=== PATIENT | female | born 1955 | race Caucasian/White ===

== ENCOUNTER 2018-10-02 13:21 | Inpatient (IN) ==
[2018-10-02 15:42] LABS: Baso % (Auto) 0.4 % (0.0-2.0); Eos # (Auto) 0.1 th/mm3 (0.0-0.4); Eos % (Auto) 0.9 % (0.0-4.0); Hemoglobin 10.3 gm/dL (11.6-15.3); Lymph # (Auto) 1.8 th/mm3 (1.0-4.8); Lymph % (Auto) 22.1 % (9.0-44.0); Mean Corpuscular HGB Conc 34.3 % (32.0-36.0); Mean Corpuscular Hemoglobin 32.9 pg (27.0-34.0); Mean Corpuscular Volume 95.8 fL (80.0-100.0); Mean Platelet Volume 7.2 fL (7.0-11.0); Mono # (Auto) 0.9 th/mm3 (0.0-0.9); Mono % (Auto) 10.4 % (0.0-8.0); Neut # (Auto) 5.5 th/mm3 (1.8-7.7); Neut % (Auto) 66.2 % (16.0-70.0); Platelet Count 242 th/mm3 (150-450); Red Blood Count 3.14 mil/mm3 (4.00-5.30); Red Cell Distribution Width 14.7 % (11.6-17.2); White Blood Count 8.3 th/mm3 (4.0-11.0)
--- NOTE | 2018-10-02 15:50 | ED ---
HPI General Chief Complaint: Psychiatric Symptoms Stated Complaint: Psy Eval/Evac/BDPD Time Seen by Provider: 10/02/18 14:58 Source: patient Mode of arrival: other Limitations: no limitations History of Present Illness HPI Narrative: The patient is a 62-year-old female who presents to the emergency department as a Briggs act. The patient states that she has a history of bipolar affective disorder and schizoaffective disorder, recently moved to [place] 2 days ago from [place], [place]. The patient states that her son from bone cancer 1 year ago, he was in his 30s at the time of . The patient moved to the local area 2 days ago but states that her money and belongings [place] at the bus station. The patient states she had been living on the streets for the last several days, and has had increasing thoughts of suicide. The patient cut her left wrist approximately 1 hour prior to arrival with a knife. The patient has tried to commit suicide in the past by cutting herself. She does note suicidal ideation and increasing depression secondary to the of her son and her current social situation. She also notes hearing voices that are telling her to harm herself, she does not recognize the voices. The patient denies any illicit drug use, alcohol use , homicidal ideation, or visual hallucinations. The patient denies any delusions. Symptoms are moderate and progressive. The patient states her last tetanus shot was 2 years ago, she is right-hand dominant. MD complaint: Reports suicidal ideation and feels depressed Onset (ago): day(s) Duration: intermittent History of same: Yes Relieving factors: none Context: Reports other Associated psychiatric symptoms: Reports depression and suicidal ideation Associated symptoms: Reports denies other symptoms Treatments prior to arrival: Reports placed on mental health hold If self harm: admits thoughts of self harm, has plan, has acted on plan and self -inflicted trauma Related Data Home Medications Medication Instructions Recorded Confirmed divalproex [Depakote] 500 mg PO BID 10/02/18 10/02/18 levothyroxine 50 mcg PO DAILY 10/02/18 10/02/18 Allergies Allergy/AdvReac Type Severity Reaction Status Date / Time lithium Allergy Confusion Verified 10/02/18 15:36 Review of Systems ROS: all other systems reviewed are negative [facility] Social History Social History Substance History: No History of Abuse Second Hand Smoke Exposure: Yes Smoking Status: Current every day smoker Tobacco Type: Cigarettes How Often Do You Have a Drink Containing Alcohol: Never Recent Travel in [facility] within the Last 8 Weeks: No Recent Out of Country Travel within the Last 8 Weeks: No Immunization History Tetanus Immunization: Unsure Tetanus Immunization Year if Known: 2017 Exam Narrative Exam Narrative: GENERAL: Awake, alert, 62-year-old female who appears older than her stated age but is in no acute respiratory distress. SKIN: Focused skin assessment warm/dry. 2.5 cm transverse laceration to the radial aspect of the left wrist, there is no visible tendon involvement. No active bleeding. HEAD: Atraumatic. Normocephalic. EYES: Pupils equal and round. 3 mm bilateral and reactive. ENT: No nasal bleeding or discharge. Upper dentures in place, no lower teeth. NECK: Trachea midline. No JVD. CARDIOVASCULAR: Regular rate and rhythm. No murmur appreciated. RESPIRATORY: No accessory muscle use. Clear to auscultation. Breath sounds equal bilaterally. GASTROINTESTINAL: Abdomen soft, non-tender, nondistended. MUSCULOSKELETAL: No obvious deformities. No clubbing. No cyanosis. No edema. NEUROLOGICAL: Awake and alert. No obvious cranial nerve deficits. Motor grossly within normal limits. Normal speech. Nonfocal. Oriented to person, place, month, and year. PSYCHIATRIC: Flat affect. Procedures Laceration Laceration 1: Site: upper extremity Side (If applicable): left Size (cm): 2 Description: linear Depth: simple, single layer Anesthetic used: lidocaine 1% Amount (mL): 2 Pre-repair:: wound explored and irrigated extensively Skin layer closed with: ethilon Size (cm): 4-0 Number of sutures:: 5 Course Initial Documented Vital Signs Temperature 98.5 F 10/02/18 13:50 Pulse Rate 78 10/02/18 13:50 Respiratory Rate 20 10/02/18 13:50 Blood Pressure 145/83 H 10/02/18 13:50 Pulse Oximetry 98 10/02/18 13:50 Last Documented Vital Signs Temperature 97.6 F 10/04/18 06:00 Pulse Rate 90 10/04/18 06:00 Respiratory Rate 17 10/04/18 06:00 Blood Pressure 151/74 H 10/04/18 06:00 Pulse Oximetry 96 10/04/18 06:00 Medical Decision Making MDM Narrative Medical decision making narrative: IV was established, labs are drawn and sent, and the patient was placed on cardiac telemetry monitoring and continuous pulse oximetry monitoring. Valproic acid level was sent to lab. The patient's laceration was repaired by the mid-level provider, please refer to the procedure note. Psychiatric evaluation was ordered. Medical Screen Exam Complete: Yes Emergency Medical Condition: Yes Differential Diagnosis Differential Diagnosis: Differential diagnosis includes bipolar affective disorder, depressive disorder, schizoaffective disorder, malingering, adjustment reaction, stress reaction, subtherapeutic Depakote level, laceration , abrasion. Lab Data Result diagrams: 10/02/18 15:00 10/03/18 08:02 Lab Results 10/02/18 10/02/18 10/02/18 Range/Units 15:00 15:00 15:00 WBC 8.3 (4.0-11.0) th/mm3 RBC 3.14 L (4.00-5.30) mil/mm3 Hgb 10.3 L (11.6-15.3) gm/dL Hct 30.0 L (35.0-46.0) % MCV 95.8 (80.0-100.0) fL MCH 32.9 (27.0-34.0) pg MCHC 34.3 (32.0-36.0) % RDW 14.7 (11.6-17.2) % Plt Count 242 (150-450) th/mm3 MPV 7.2 (7.0-11.0) fL Neut % (Auto) 66.2 (16.0-70.0) % Lymph % (Auto) 22.1 (9.0-44.0) % [place] % (Auto) 10.4 H (0.0-8.0) % Eos % (Auto) 0.9 (0.0-4.0) % Baso % (Auto) 0.4 (0.0-2.0) % Neut # (Auto) 5.5 (1.8-7.7) th/mm3 Lymph # (Auto) 1.8 (1.0-4.8) th/mm3 [place] # (Auto) 0.9 (0.0-0.9) th/mm3 Eos # (Auto) 0.1 (0.0-0.4) th/mm3 Baso # (Auto) 0.0 (0.0-0.2) th/mm3 WBC Differential . Differential Comment Auto diff final Sodium 142 (136-145) meq/L Potassium 4.2 (3.5-5.1) meq/L Chloride 111 H (98-107) meq/L Carbon Dioxide 24.8 (21.0-32.0) meq/L Anion Gap 6 (5-15) meq/L BUN 20 H (7-18) mg/dL Creatinine 1.17 H (0.50-1.00) mg/dL Estimated GFR 47 L (>89) mL/min Random Glucose 80 (74-106) mg/dL Hemoglobin A1c (4.3-6.0) % Calcium 8.3 L (8.5-10.1) mg/dL Magnesium 2.3 (1.5-2.5) mg/dL Total Bilirubin 0.2 (0.2-1.0) mg/dL AST 10 L (15-37) U/L ALT 11 (10-53) U/L Alkaline Phosphatase 85 (45-117) U/L Total Protein 6.3 L (6.4-8.2) g/dL Albumin 3.3 L (3.4-5.0) g/dL Triglycerides (42-150) mg/dL Cholesterol (120-200) mg/dL LDL Cholesterol, Calc (0-99) mg/dL HDL Cholesterol (40.0-60.0) mg/dL Cholesterol/HDL Ratio Ratio TSH 0.949 (0.358-3.740) uIU/mL Urine Opiates Screen (Neg) Ur Barbiturates Screen (Neg) Valproic Acid 5 L Cancelled (50-100) mcg/mL Ur Amphetamines Screen (Neg) U Benzodiazepines Scrn (Neg) Urine Cocaine Screen (Neg) U Cannabinoids Screen (Neg) Serum Alcohol Less than 3 (0-5) mg/dL 10/02/18 10/03/18 10/03/18 Range/Units 15:15 08:02 08:02 WBC (4.0-11.0) th/mm3 RBC (4.00-5.30) mil/mm3 Hgb (11.6-15.3) gm/dL Hct (35.0-46.0) % MCV (80.0-100.0) fL MCH (27.0-34.0) pg MCHC (32.0-36.0) % RDW (11.6-17.2) % Plt Count (150-450) th/mm3 MPV (7.0-11.0) fL Neut % (Auto) (16.0-70.0) % Lymph % (Auto) (9.0-44.0) % [place] % (Auto) (0.0-8.0) % Eos % (Auto) (0.0-4.0) % Baso % (Auto) (0.0-2.0) % Neut # (Auto) (1.8-7.7) th/mm3 Lymph # (Auto) (1.0-4.8) th/mm3 [place] # (Auto) (0.0-0.9) th/mm3 Eos # (Auto) (0.0-0.4) th/mm3 Baso # (Auto) (0.0-0.2) th/mm3 WBC Differential Differential Comment Sodium 140 (136-145) meq/L Potassium 4.4 (3.5-5.1) meq/L Chloride 110 H (98-107) meq/L Carbon Dioxide 22.7 (21.0-32.0) meq/L Anion Gap 7 (5-15) meq/L BUN 19 H (7-18) mg/dL Creatinine 0.99 (0.50-1.00) mg/dL Estimated GFR 57 L (>89) mL/min Random Glucose 121 H (74-106) mg/dL Hemoglobin A1c 4.7 (4.3-6.0) % Calcium 8.6 (8.5-10.1) mg/dL Magnesium (1.5-2.5) mg/dL Total Bilirubin (0.2-1.0) mg/dL AST (15-37) U/L ALT (10-53) U/L Alkaline Phosphatase (45-117) U/L Total Protein (6.4-8.2) g/dL Albumin (3.4-5.0) g/dL Triglycerides 102 (42-150) mg/dL Cholesterol 170 (120-200) mg/dL LDL Cholesterol, Calc 83 (0-99) mg/dL HDL Cholesterol 66.5 H (40.0-60.0) mg/dL Cholesterol/HDL Ratio 2.55 Ratio TSH (0.358-3.740) uIU/mL Urine Opiates Screen Neg (Neg) Ur Barbiturates Screen Neg (Neg) Valproic Acid (50-100) mcg/mL Ur Amphetamines Screen Neg (Neg) U Benzodiazepines Scrn Neg (Neg) Urine Cocaine Screen Neg (Neg) U Cannabinoids Screen Neg (Neg) Serum Alcohol (0-5) mg/dL Discharge Plan Discharge Disposition Patient Disposition: Sign Out(ED Internal Use Only) Discharge Condition Condition: Stable Discharge Order Discharge Orders: ED Use Only Admit Order (Routine); Ordered 10/02/18 Ordered By: Patrice Castrejon Discharge Details Diagnosis: Suicidal ideation, Suicidal behavior Physicians Team ED Provider: Jf Stephenson ED Midlevel Provider: Rebecca Yuen Primary Care Provider: Primary Care Lala Grajeda Attending Provider: Patrice Castrejon Status ED Status: Left Department Discharge Information Discharge Date/Time: 10/02/18 21:30
[2018-10-02 15:53] LABS: Amphetamine Screen,Urine Neg (Neg); Barbiturate Screen,Urine Neg (Neg); Cannabinoid Screen,Urine Neg (Neg); Cocaine Screen,Urine Neg (Neg)
[2018-10-02 15:54] LABS: Opiate Screen,Urine Neg (Neg)
[2018-10-02 16:12] LABS: Alanine Aminotransferase 11 U/L (10-53); Albumin 3.3 g/dL (3.4-5.0); Anion Gap 6 meq/L (5-15); Aspartate Aminotransferase 10 U/L (15-37); Blood Urea Nitrogen 20 mg/dL (7-18); Calcium 8.3 mg/dL (8.5-10.1); Carbon Dioxide 24.8 meq/L (21.0-32.0); Chloride 111 meq/L (98-107); Glomerular Filtration Rate 47 mL/min (>89); Glucose,Random 80 mg/dL (74-106); Magnesium 2.3 mg/dL (1.5-2.5); Potassium 4.2 meq/L (3.5-5.1); Sodium 142 meq/L (136-145)
[2018-10-02 16:17] LABS: Alkaline Phosphatase 85 U/L (45-117); Total Protein 6.3 g/dL (6.4-8.2); Valproic Acid 5 mcg/mL (50-100)
[2018-10-02 16:22] LABS: Thyroid Stimulating Hormone 0.949 uIU/mL (0.358-3.740)
[2018-10-02] MEDS ORDERED: Acetaminophen 325 MG Tablet PO ONE (17:03)
[2018-10-02] MEDS ORDERED: LORazepam 1 MG Tablet PO PRN (21:35)
[2018-10-02] MEDS ORDERED: Aluminum/Magnesium/Simethacone Susp 30 ML UDC PO PRN (21:35)
[2018-10-02] MEDS: Acetaminophen 325 MG Tablet PO PRN (22:29)
[2018-10-02] MEDS ORDERED: LORazepam 1 MG Tablet PO ONE (22:30)
[2018-10-03] MEDS ORDERED: Levothyroxine 50 MCG Tablet PO SCH (06:00)
[2018-10-03 08:49] LABS: Calcium 8.6 mg/dL (8.5-10.1); Carbon Dioxide 22.7 meq/L (21.0-32.0); Potassium 4.4 meq/L (3.5-5.1)
[2018-10-03 08:52] LABS: Chol/HDL Ratio 2.55 Ratio; HDL Cholesterol 66.5 mg/dL (40.0-60.0)
[2018-10-03] MEDS: Acetaminophen 325 MG Tablet PO PRN (10:53)
[2018-10-03 13:02] LABS: Hemoglobin A1c 4.7 % (4.3-6.0)
[2018-10-03] MEDS ORDERED: Aluminum/Magnesium/Simethacone Susp 30 ML UDC PO PRN (16:06)
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
[2018-10-03] MEDS: QUEtiapine 25 MG Tablet PO SCH ×2 (17:03→21:08)
[2018-10-03] MEDS: Mirtazapine 15 MG Tablet PO SCH (21:07)
[2018-10-03] MEDS: Divalproex 500 MG DR Tablet PO SCH (21:07)
[2018-10-04] MEDS: Levothyroxine 50 MCG Tablet PO SCH (06:17)
[2018-10-04] MEDS: QUEtiapine 25 MG Tablet PO SCH ×4 (08:08→20:48)
[2018-10-04] MEDS: Divalproex 500 MG DR Tablet PO SCH ×2 (08:08→20:48)
--- NOTE | 2018-10-04 14:43 | P.PNPSY ---
Subjective Remarks: Reviewed electronic medical records and discussed case with staff. Follow-up was conducted in the patient's room with KETTY Hyatt present. Patient was found standing in the doorway attempting to cut her wrist with a piece of a plastic lid. She also had a stick in her hand which she must of brought in from the outside during fresh air. Patient was crying and kept repeating, "I just want to I cannot live like this anymore". I have ordered a one-to-one sitter for the patient to monitor her behaviors. I consulted with Dr. Carson and have increased her daytime Seroquel dose to 50 mg 3 times a day. Mental Status Examination Appearance: Disheveled (Appears somewhat older than stated age) Consciousness: Alert Orientation: x4 Motor Activity: Other (Somewhat tremulous) Speech: Rapid (Somewhat tremulous) Language: Adequate Fund of Knowledge: Adequate Attention and Concentration: Adequate Memory: Unremarkable Mood: Sad, Anxious Affect: Other (Decreased range and intensity) Thought Process & Associations: Intact Thought Content: Appropriate Hallucination Type: None Delusion Type: None Suicidal Ideation: Yes (Patient states will not take the suicide pill at this time) Suicidal Plan: Yes (Recently cut left wrist) Suicidal Intention: Yes (Vague) Homicidal Ideation: No Homicidal Plan: No Homicidal Intention: No Insight: Poor Judgment: Poor Assessment and Plan - Assessment (1) Adjustment disorder with disturbance of conduct Code(s): F43.24 - Adjustment disorder with disturbance of conduct Status: Acute - Plan Plan: Patient will be reevaluated by the attending psychiatrist. Continue with current treatment plan. Justification for Continued Inpatient Stay: Moving this patient to a less restrictive environment would likely result in decompensation. Request Healthcare Surrogate/Guardian Advocate?: No
--- NOTE | 2018-10-04 15:01 | ECG ---
Date Performed: 10/03/2018 Time Performed: 13:54:36 PTAGE: 62 years EKG: Sinus rhythm NORMAL ECG NO PREVIOUS TRACING DOCTOR: Rudy Thompson Interpretating Date/Time 10/04/2018 14:58:20
[2018-10-04] MEDS: Acetaminophen 325 MG Tablet PO PRN (20:47)
[2018-10-04] MEDS: Mirtazapine 15 MG Tablet PO SCH (20:48)
[2018-10-05] MEDS: Levothyroxine 50 MCG Tablet PO SCH (05:52)
[2018-10-05] MEDS: Divalproex 500 MG DR Tablet PO SCH ×2 (08:25→20:25)
[2018-10-05] MEDS: Acetaminophen 325 MG Tablet PO PRN ×3 (08:45→20:26)
[2018-10-05] MEDS: QUEtiapine 25 MG Tablet PO SCH ×4 (08:48→20:26)
--- NOTE | 2018-10-05 13:05 | P.PNPSY ---
Subjective Remarks: Patient seen in her room with floor staff Heber who is on a one-to-one observation assignment. Chart reviewed. Patient compliant medication. Patient is seen today laying on her bed she is alert oriented calm cooperative is that she had a "bad day yesterday." He states she is feeling better today she feels adjustment of the medications has helped. Patient states she continues with her suicidal ideation with intent, and her depression. However today she is able contract to do no harm she is able contract to keep herself safe. Thus I feel that it is okay for me to discontinue the one-to-one observation and place her back on close observation unit privileges. We will continue medications no change at this time. We also discussed with patient placement issues perhaps a local [facility]. Patient also complains of some pain towards her left side of her face and her ear will have hospitalist check the source Review of Systems Patient complaining of some pain around her left ear and left side of her face will have hospitalist check Mental Status Examination Appearance: Disheveled (Improving) Consciousness: Alert Orientation: x4 Motor Activity: Other (Somewhat tremulous) Speech: Unremarkable, Slow Language: Adequate Fund of Knowledge: Adequate Attention and Concentration: Adequate Memory: Unremarkable Mood: Sad, Anxious Affect: Other (Decreased range and intensity) Thought Process & Associations: Intact Thought Content: Appropriate Hallucination Type: None Delusion Type: None Suicidal Ideation: Yes (Patient able contract to do no) Suicidal Plan: Yes (Patient able contract to do no harm) Suicidal Intention: Yes (Patient able contract to do no harm) Homicidal Ideation: No Homicidal Plan: No Homicidal Intention: No Insight: Poor Judgment: Poor Assessment and Plan - Plan Plan: Patient continues depressed and suicidal though is able contract to do no harm at the present time. She is also able contract to keep self-control and not harm herself while on the unit thus I will cancel the one-to-one observations and return patient to the close observation unit privileges. We will continue medication no change at this time. We will have hospitalist consult related patient is complaining of pain in the left side of her face and left ear area Justification for Continued Inpatient Stay: At this time patient with decompensated placed on a lower level of care Discharge Planning: To be determined we need to work with the placement issues with this homeless lady Request Healthcare Surrogate/Guardian Advocate?: No
--- NOTE | 2018-10-05 13:20 | P.TTN ---
- Patient Problems Problems: 1. Discharge planning 2. Medication compliance 3. Knowledge deficit 4. Lack of coping skills - Progress Toward Goals Provider Present: Dr. Luis Carson (Patient is being treated for depression with unresolved grief, patient remains for further stabilization.) Psychiatric Counselors Present: Augustus Almazan Jr., [facility] (Counselor will meet with the patient to discuss a safe discharge plan.) Group Spec/RT/OT/GAO Present: AMADO Muñoz (Patient attends select groups.) - Documentation Teaching Recipient: Patient
[2018-10-05] MEDS ORDERED: Clindamycin 600 mg/NS Premix 600 MG/50 ML PIGGYBACK IV.SIG SCH (16:45)
--- NOTE | 2018-10-05 16:56 | P.CONIM ---
History of Present Illness Service: Hospitalist Consult date: 10/05/18 Requesting Physician: Randy Carson Reason for Consult: Fever Primary Care Provider: No Primary Care Physician Chief Complaint: Sore neck and fever History of Present Illness: Patient is a 62-year-old female with a past medical history of hypothyroidism, COPD and bipolar and schizoaffective disorder. Initially presented to the emergency room 10/02/18 severely depressed and with suicidal ideation. She was Briggs acted and placed in the inpatient psychiatric unit. Today the patient developed a low-grade fever of 100.3 and complained of pain and swelling in her neck. Hospitalist service has been consulted for evaluation of the fever and pain. Patient is seen lying on her bed. She tells me that she feels very tired and has had fever and chills. The left side of her neck is very painful under her jaw and along the side. She says it has been bothering her for several days and that the swollen area has gradually gotten bigger. She is able to swallow without difficulty. No problems breathing. No chest congestion, shortness of breath or chest pain. No nausea vomiting or diarrhea. Her appetite is somewhat reduced due to the pain in her neck. She has no bottom teeth and wears dentures. Does complain of recent canker sores which she has on and off. No prior history of neck surgery. She does have hypothyroidism for which she takes levothyroxine daily. Review of Systems Review of Systems: all other systems reviewed are negative [facility] Medical History Medical History Emphysema of lung (Acute) History of hysterectomy (Acute) Hypothyroid (Acute) COPD (chronic obstructive pulmonary disease) (Acute) Surgical History Surgical History History of knee replacement (Acute) Social History Social History Substance History: No History of Abuse Second Hand Smoke Exposure: Yes Smoking Status: Current every day smoker Tobacco Type: Cigarettes How Often Do You Have a Drink Containing Alcohol: Never Recent Travel in [facility] within the Last 8 Weeks: No Recent Out of Country Travel within the Last 8 Weeks: No Immunization History Tetanus Immunization: Unsure Tetanus Immunization Year if Known: 2016 Hx Influenza Vaccine This Season: No Medications and Allergies Allergies Allergy/AdvReac Type Severity Reaction Status Date / Time lithium Allergy Confusion Verified 10/02/18 15:36 Home Medications Medication Instructions Recorded Confirmed Type divalproex [Depakote] 500 mg PO BID 10/02/18 10/02/18 History levothyroxine 50 mcg PO DAILY 10/02/18 10/02/18 History Active Medications: Active Medications Acetaminophen (Tylenol) 650 mg PO Q4H PRN PRN Reason: Pain 1-5 or Temp >101F Last Admin: 10/05/18 13:59 Dose: 650 mg Al Hydrox/Mg Hydrox/Simethicone (Mag-Al Plus Susp Liq) 30 ml PO Q6H PRN PRN Reason: DYSPEPSIA Al Hydroxide/Mg Hydroxide (Milk Of Magnesia Liq) 30 ml PO Q12H PRN PRN Reason: Mild Constipation Diphenhydramine HCl (Benadryl) 50 mg PO HS PRN PRN Reason: INSOMNIA Divalproex Sodium (Depakote Dr) 500 mg PO BID [facility] Last Admin: 10/05/18 08:25 Dose: 500 mg Hydroxyzine HCl (Atarax) 50 mg PO Q6H PRN PRN Reason: ANXIETY Last Admin: 10/05/18 15:14 Dose: 50 mg Levothyroxine Sodium (Synthroid) 50 mcg PO DAILY@0600 [facility] Last Admin: 10/05/18 05:52 Dose: 50 mcg Mirtazapine (Remeron) 15 mg PO [facility] Last Admin: 10/04/18 20:48 Dose: 15 mg Nicotine (Habitrol 21 Mg Patch.24 Hr) 1 patch T-DERMAL DAILY [facility] Last Admin: 10/05/18 08:25 Dose: 1 patch Patch Removal (Remove Old Patch) 1 each T-DERMAL [facility] Last Admin: 10/04/18 21:47 Dose: Not Given Quetiapine Fumarate (Seroquel) 50 mg PO [facility] Last Admin: 10/04/18 20:48 Dose: 50 mg Quetiapine Fumarate (Seroquel) 50 mg PO DAILY@08,,18 [facility] Last Admin: 10/05/18 14:02 Dose: 50 mg Physical Exam Vital signs: Last Vital Signs Temp 100.3 F H 10/05/18 15:14 Pulse 98 H 10/05/18 15:14 Resp 18 10/05/18 15:14 BP 111/61 10/05/18 15:14 Pulse Ox 95 10/05/18 15:14 Intake & Output 10/03/18 10/04/18 10/05/18 10/06/18 06:59 06:59 06:59 06:59 Weight 63.7 kg 65.9 kg Narrative: GENERAL: Well-nourished, well-developed adult female in mild discomfort. SKIN: Warm and dry. HEAD: Atraumatic. Normocephalic. EYES: Pupils equal and round. No scleral icterus. No injection or drainage. ENT: No nasal bleeding or discharge. Mucous membranes pink and moist. No preauricular tenderness. NECK: Trachea midline. No JVD. Left submandibular tenderness. Visible and easily palpated around lump in subglandular space which is exquisitely tender to touch. No surface lesion or erythema. Throat with erythema but no obvious exudates. No obvious dental lesions. CARDIOVASCULAR: Regular rate and rhythm. RESPIRATORY: No accessory muscle use. Clear to auscultation. Breath sounds equal bilaterally. GASTROINTESTINAL: Abdomen soft, non-tender, nondistended. MUSCULOSKELETAL: Extremities without clubbing, cyanosis, or edema. No obvious deformities. NEUROLOGICAL: Awake and alert. No obvious cranial nerve deficits. Motor grossly within normal limits. Normal speech. Results Labs CBC & Chem 7: 10/02/18 15:00 10/03/18 08:02 Assessment and Plan (1) Adjustment disorder with disturbance of conduct: Code(s): F43.24 - Adjustment disorder with disturbance of conduct Status: Acute Plan Patient is a 62-year-old female with a past medical history of hypothyroidism, COPD and bipolar and schizoaffective disorder. Initially presented to the emergency room 10/02/18 severely depressed and with suicidal ideation. She was Briggs acted and placed in the inpatient psychiatric unit. Today the patient developed a low-grade fever of 100.3 and complained of pain and swelling in her neck. Hospitalist service has been consulted for evaluation of the fever and pain. Suicidal ideation, bipolar, schizoaffective -Managed by psychiatry Submandibular swelling, fever -CT ordered to evaluate for abscess -Labs not indicative of sepsis at admit on 10/02; repeat ordered -Start IV clindamycin -Tylenol for pain and fever -Transfer to med psych -Gentle IVF fluid due to swallow pain/difficulty and concern for dehydration DVT prophylaxis: Ambulatory Thank you for this consult. We look forward to assisting you in the medical management of this patient.
[2018-10-05 17:40] LABS: Baso % (Auto) 0.6 % (0.0-2.0); Eos # (Auto) 0.2 th/mm3 (0.0-0.4); Eos % (Auto) 2.9 % (0.0-4.0); Hemoglobin 10.4 gm/dL (11.6-15.3); Lymph # (Auto) 2.5 th/mm3 (1.0-4.8); Lymph % (Auto) 34.9 % (9.0-44.0); Mean Corpuscular HGB Conc 33.4 % (32.0-36.0); Mean Corpuscular Hemoglobin 32.5 pg (27.0-34.0); Mean Corpuscular Volume 97.3 fL (80.0-100.0); Mean Platelet Volume 7.3 fL (7.0-11.0); Mono # (Auto) 0.5 th/mm3 (0.0-0.9); Mono % (Auto) 7.7 % (0.0-8.0); Neut # (Auto) 3.8 th/mm3 (1.8-7.7); Neut % (Auto) 53.9 % (16.0-70.0); Platelet Count 218 th/mm3 (150-450); Red Blood Count 3.18 mil/mm3 (4.00-5.30); Red Cell Distribution Width 14.9 % (11.6-17.2); White Blood Count 7.1 th/mm3 (4.0-11.0)
[2018-10-05 18:08] LABS: Calcium 8.3 mg/dL (8.5-10.1); Carbon Dioxide 22.1 meq/L (21.0-32.0); Potassium 4.4 meq/L (3.5-5.1)
[2018-10-05] MEDS: Sod Chloride 0.9% Inj 1,000 ML IV.CONT SCH (18:46)
--- NOTE | 2018-10-05 20:15 | CT ---
EXAM DATE: 10/05/2018 8:02 PM EST AGE/SEX: 62 years / Female INDICATIONS: Left neck swelling. CLINICAL DATA: This is the patient's initial encounter. Patient reports that signs and symptoms have been present for 1 day and indicates a pain score of 3/10. MEDICAL/SURGICAL HISTORY: Chronic obstructive pulmonary disease. Emphysema. Hysterectomy. RADIATION DOSE: 32.15 CTDI (mGy) COMPARISON: No prior exams available for comparison. TECHNIQUE: Helical acquisition was performed using a multirow detector CT scanner during the adminis tration of 70 ml Omnipaque 350 (iohexol) nonionic water-soluble contrast as a single exam dose. Usi ng automated exposure control and adjustment of the mA and/or kV according to patient size, radiation dose was kept as low as reasonably achievable to obtain optimal diagnostic quality images. DICOM fo rmat image data is available electronically for review and comparison. FINDINGS: There is a 6 mm stone in the floor of the mouth on the left consistent with salivary duct stone. Ther e is mild asymmetric swelling of the ipsilateral submandibular salivary gland. Elsewhere, the visualized brain and orbital structures are unremarkable. The upper airway structures are unremarkable There are small normal sized cervical lymph nodes identified. There is heterogeneous goitrous enlargement of the thyroid with scattered calcifications present. The supraclavicular regions, upper mediastinum and visualized lung apices are clear. The bony elements are benign in appearance. CONCLUSION: Left floor of mouth sialolithiasis. Electronically signed by: Randy Barnes MD Board Certified Radiologist 10/05/2018 8:14 PM EST
[2018-10-05] MEDS: Mirtazapine 15 MG Tablet PO SCH (20:26)
[2018-10-06] MEDS: Levothyroxine 50 MCG Tablet PO SCH (06:22)
[2018-10-06] MEDS: Divalproex 500 MG DR Tablet PO SCH ×2 (08:20→20:21)
[2018-10-06] MEDS: Acetaminophen 325 MG Tablet PO PRN (08:21)
[2018-10-06] MEDS: QUEtiapine 25 MG Tablet PO SCH ×4 (08:21→20:21)
[2018-10-06] MEDS ORDERED: Morphine Inj 4 MG/ML Vial IV.PUSH PRN (08:46)
[2018-10-06] MEDS ORDERED: Naloxone Inj 0.4 MG/ML Vial IV.PUSH PRN (08:46)
--- NOTE | 2018-10-06 08:48 | P.PNIM ---
Subjective Interval history: Patient seen lying in bed. Still appears to be in some distress and is complaining about significant pain In her jaw radiating up into her ear. She is not having any difficulty swallowing or breathing. No fever or chills. No nausea vomiting Or diarrhea. Physical Exam Vital signs: Last Vital Signs Temp 98.0 F 10/06/18 06:14 Pulse 77 10/06/18 06:14 Resp 18 10/06/18 06:14 BP 123/80 10/06/18 06:14 Pulse Ox 95 10/06/18 06:14 Intake & Output 10/04/18 10/05/18 10/06/18 10/07/18 06:59 06:59 06:59 06:59 Intake Total Balance Weight 65.9 kg Narrative: GENERAL: Well-nourished, well-developed adult female in mild discomfort. SKIN: Warm and dry. HEAD: Atraumatic. Normocephalic. EYES: Pupils equal and round. No scleral icterus. No injection or drainage. ENT: No nasal bleeding or discharge. Mucous membranes pink and moist. No preauricular tenderness. NECK: Trachea midline. No JVD. Left submandibular tenderness. Visible and easily palpated around lump in subglandular space which is exquisitely tender to touch. No surface lesion or erythema. Throat with erythema but no obvious exudates. No obvious dental lesions. CARDIOVASCULAR: Regular rate and rhythm. RESPIRATORY: No accessory muscle use. Clear to auscultation. Breath sounds equal bilaterally. GASTROINTESTINAL: Abdomen soft, non-tender, nondistended. MUSCULOSKELETAL: Extremities without clubbing, cyanosis, or edema. No obvious deformities. NEUROLOGICAL: Awake and alert. No obvious cranial nerve deficits. Motor grossly within normal limits. Normal speech. Results Labs CBC & Chem 7: 10/05/18 17:21 10/05/18 17:21 Imaging Imaging: Impressions Soft Tissue Neck CT 10/05/18 00:00 CONCLUSION: Left floor of mouth sialolithiasis. Assessment and Plan (1) Adjustment disorder with disturbance of conduct: Code(s): F43.24 - Adjustment disorder with disturbance of conduct Status: Acute Plan Patient is a 62-year-old female with a past medical history of hypothyroidism, COPD and bipolar and schizoaffective disorder. Initially presented to the emergency room 10/02/18 severely depressed and with suicidal ideation. She was Briggs acted and placed in the inpatient psychiatric unit. Today the patient developed a low-grade fever of 100.3 and complained of pain and swelling in her neck. Hospitalist service has been consulted for evaluation of the fever and pain. Suicidal ideation, bipolar, schizoaffective -Managed by psychiatry Sialolithiasis/Sialoadenitis Submandibular swelling, fever -CT ordered to evaluate - an abscess; 6 mm salivary duct stone. -Consult placed to ENT; appreciate assistance -Labs not indicative of sepsis at admit on 10/02 however HR 90 with RR 20+ and T- max 100.3; repeat ordered -now lactic acid 3.1. -Start IV clindamycin -Gentle IVF fluid due to swallow pain/difficulty and concern for dehydration Acute pain -PRN pain management as indicated. Avoid oversedation. DVT prophylaxis: Ambulatory [employer] Prescription Drug Monitoring Database has been queried and verified prior to prescribing the controlled substance. Acute pain exception: This patient has normal, predicted, physiological, and time limited response to an adverse mechanical stimulus associated with surgery , trauma, or acute illness as described in my notes. There is a lack of alternative treatment options other than to include the prescribed narcotic treatment for this condition. Progress Note: Quality VTE Deep Vein Thrombosis/Pulmonary Embolism Present on Admission: No
--- NOTE | 2018-10-06 12:33 | P.PNPSY ---
Subjective Remarks: Patient seen in her room with nurse Kristan, chart reviewed, patient compliant medication. Also reviewed hospitalist records of their assessment and initial treatment for her salivary gland stones. Patient is in some discomfort but coping with that. She states she does feel safe here, though there is still some suicidality, there is still some auditory hallucinations of male voices threatening her. For now continue treatment no change medication has been adjusted yesterday Review of Systems All other systems reviewed negative except as stated in HPI Mental Status Examination Appearance: Appropriate, Disheveled (Improving) Consciousness: Alert Orientation: x4 Motor Activity: Other (Somewhat tremulous) Speech: Unremarkable, Slow Language: Adequate Fund of Knowledge: Adequate Attention and Concentration: Adequate Memory: Unremarkable Mood: Sad, Anxious (Somewhat calmer) Affect: Other (Decreased range and intensity) Thought Process & Associations: Intact Thought Content: Appropriate Hallucination Type: None Delusion Type: None Suicidal Ideation: Yes (Patient able contract to do no harm) Suicidal Plan: Yes (Patient able contract to do no harm) Suicidal Intention: Yes (Patient able contract to do no harm) Homicidal Ideation: No Homicidal Plan: No Homicidal Intention: No Insight: Poor Judgment: Poor Assessment and Plan - Assessment (1) Adjustment disorder with mixed disturbance of emotions and conduct Code(s): F43.25 - Adjustment disorder with mixed disturbance of emotions and conduct Status: Acute - Plan Plan: Patient continues depressed and suicidal though is able contract to do no harm at the present time. She is also able contract to keep self-control and not harm herself while on the unit thus I will cancel the one-to-one observations and return patient to the close observation unit privileges. We will continue medication no change at this time. We will have hospitalist consult related patient is complaining of pain in the left side of her face and left ear area 10/06/2017 patient somewhat calmer more appropriate suicidality is less perhaps more related to her fear of being homeless and getting into situations that occurred on her arrival here. She is coping with the medical issues and the hospitalist's treatment. For now continue treatment Justification for Continued Inpatient Stay: At this time patient with decompensated placed in a lower level of care Discharge Planning: To be determined we need to work with patient to find appropriate placement Request Healthcare Surrogate/Guardian Advocate?: No
[2018-10-06] MEDS: Ampicillin/Sulbactam Inj 3 GM in Sodium Chloride 0.9% Inj 100 ML IV.SIG SCH ×2 (17:32→22:09)
[2018-10-06] MEDS: Sod Chloride 0.9% Inj 1,000 ML IV.CONT SCH (18:11)
[2018-10-06] MEDS: Mirtazapine 15 MG Tablet PO SCH (20:21)
[2018-10-07] MEDS: Ampicillin/Sulbactam Inj 3 GM in Sodium Chloride 0.9% Inj 100 ML IV.SIG SCH ×4 (05:03→23:41)
[2018-10-07] MEDS: Levothyroxine 50 MCG Tablet PO SCH (05:04)
[2018-10-07] MEDS: QUEtiapine 25 MG Tablet PO SCH ×4 (08:07→20:22)
[2018-10-07] MEDS: Divalproex 500 MG DR Tablet PO SCH ×2 (08:07→20:21)
--- NOTE | 2018-10-07 09:12 | P.TTN ---
- Patient Problems Problems: 1. Discharge planning 2. Medication compliance 3. Knowledge deficit 4. Lack of coping skills - Progress Toward Goals Provider Present: Dr. Luis Carson (Patient is being treated for depression with unresolved grief, patient remains for further stabilization.) Provider Input: 10/07/2018; per doctor patient is being treated for her mood/ depression medication is being titrated/adjustments bieng made Nurse(s) Present: RN Nurse Input: 10/07/2018; per RN patient is on oral medication, no behavior and med/meal compliance. Psychiatric Counselors Present: Augustus Almazan Jr., [facility] (Counselor will meet with the patient to discuss a safe discharge plan.), Noemi Lynne, [facility] Psychiatric Therapist Input: 10/07/2018; counselor will discuss appropriate dc planning with patient obtain income information. Group Spec/RT/OT/GAO Present: AMADO Muñoz (Patient attends select groups.), Lucien Pepe OT Group Spec/RT/OT/GAO Input: 10/07/2018; patient participates with groups and activities with a positive actitude - Documentation Teaching Recipient: Patient
--- NOTE | 2018-10-07 12:00 | P.PNIM ---
Subjective Interval history: Patient is seen lying in bed. She is still painful but somewhat improved. She tells me that last month she took a medication for ADHD which did make her mouth very dry. She is no longer taking this medication. No swallow difficulty; tolerating meals well. No problems breathing. Occasional chills. Physical Exam Vital signs: Vital Signs 10/06/18 18:06 10/07/18 06:05 Temperature 98.6 F 98.7 F Pulse Rate 79 85 Respiratory Rate 18 17 Blood Pressure 121/55 L 119/57 L Pulse Oximetry 93 L 93 L Intake & Output 10/06/18 10/07/18 10/07/18 18:59 06:59 18:59 Intake Total 2320 / 2320 200 / 200 1315 / 1315 Balance 2320 / 2320 200 / 200 1315 / 1315 Intake: IV 1120 / 1120 200 / 200 115 / 115 NS Inj 1,000 ML @ 42 mls/hr IV. 900 / 900 CONT .[id number] ISRA Rx#:[id number] Unasyn Inj 3 GM In NS Inj 100 110 / 110 200 / 200 115 / 115 ML @ 200 mls/hr IV.SIG Q6H ISRA Rx#:[id number] Cleocin Inj 600 MG In NS Inj 110 / 110 100 ML @ 200 mls/hr IV.SIG Q8H ISRA Rx#:[id number] Oral 1200 / 1200 1200 / 1200 Other: # Voids 3 Narrative: GENERAL: Well-nourished, well-developed adult female in mild discomfort. SKIN: Warm and dry. NECK: Trachea midline. No JVD. Left submandibular tenderness. Visible and easily palpated around lump in subglandular space which is exquisitely tender to touch. No surface lesion or erythema. Throat with erythema but no obvious exudates. No obvious dental lesions. CARDIOVASCULAR: Regular rate and rhythm. RESPIRATORY: No accessory muscle use. Clear to auscultation. Breath sounds equal bilaterally. GASTROINTESTINAL: Abdomen soft, non-tender, nondistended. MUSCULOSKELETAL: Extremities without clubbing, cyanosis, or edema. No obvious deformities. Results Labs CBC & Chem 7: 10/05/18 17:21 10/05/18 17:21 Assessment and Plan (1) Adjustment disorder with mixed disturbance of emotions and conduct: Code(s): F43.25 - Adjustment disorder with mixed disturbance of emotions and conduct Status: Acute Plan Patient is a 62-year-old female with a past medical history of hypothyroidism, COPD and bipolar and schizoaffective disorder. Initially presented to the emergency room 10/02/18 severely depressed and with suicidal ideation. She was Briggs acted and placed in the inpatient psychiatric unit. Today the patient developed a low-grade fever of 100.3 and complained of pain and swelling in her neck. Hospitalist service has been consulted for evaluation of the fever and pain. Suicidal ideation, bipolar, schizoaffective -Managed by psychiatry Sialolithiasis/Sialoadenitis Submandibular swelling, fever -CT ordered to evaluate - an abscess; 6 mm salivary duct stone. -Consult placed to ENT; appreciate assistance -Labs not indicative of sepsis at admit on 10/02 however HR 90 with RR 20+ and T- max 100.3; repeat ordered -now lactic acid 3.1. Monitor. -Started IV clindamycin; changed 10/06/18 to ampicillin and Augmentin by Dr. Lopez, ENT -Dexamethasone x 3 doses added -Gentle IVF fluid due to swallow pain/difficulty and concern for dehydration; monitor for fluid overload Acute pain -PRN pain management as indicated. Avoid oversedation. DVT prophylaxis: Ambulatory Progress Note: Quality VTE Deep Vein Thrombosis/Pulmonary Embolism Present on Admission: No
--- NOTE | 2018-10-07 12:39 | P.PNPSY ---
Subjective Remarks: Patient seen in her room with floor staff, chart reviewed, medicine service note reviewed. Patient compliant medication. Patient laying in bed calmly alert oriented cooperative complaining still of some pain related to her salivary gland stones but tolerating it well. She denies suicidality though this was some depression related to her homelessness her unknown future. 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 She does complain of some poor sleep. We will offer her trazodone 50 mg at at bedtime on a as needed basis Review of Systems All other systems reviewed negative except as stated in HPI Mental Status Examination Appearance: Appropriate Consciousness: Alert Orientation: x4 Motor Activity: Other (Mildly tremulous) Speech: Unremarkable Language: Adequate Fund of Knowledge: Adequate Attention and Concentration: Adequate Memory: Unremarkable Mood: Sad, Anxious (Better) Affect: Other (Good range and intensity) Thought Process & Associations: Intact Thought Content: Appropriate Hallucination Type: None Delusion Type: None Suicidal Ideation: Yes (Patient able contract to do no harm) Suicidal Plan: Yes (Patient able contract to do no harm) Suicidal Intention: Yes (Patient able contract to do no harm) Homicidal Ideation: No Homicidal Plan: No Homicidal Intention: No Insight: Adequate Judgment: Adequate Assessment and Plan - Assessment (1) Adjustment disorder with mixed disturbance of emotions and conduct Code(s): F43.25 - Adjustment disorder with mixed disturbance of emotions and conduct Status: Acute - Plan Plan: His mood improving somewhat she is compliant with medication. We will add trazodone for insomnia. Placement may remains somewhat problematic with this nice lady Justification for Continued Inpatient Stay: At this time patient with decompensated placed in a lower level of care Discharge Planning: To be determined Request Healthcare Surrogate/Guardian Advocate?: No
[2018-10-07] MEDS: Sod Chloride 0.9% Inj 1,000 ML IV.CONT SCH (18:28)
[2018-10-07] MEDS: traZODone 50 MG Tablet PO PRN (20:22)
[2018-10-07] MEDS: Mirtazapine 15 MG Tablet PO SCH (20:22)
[2018-10-08] MEDS: Ampicillin/Sulbactam Inj 3 GM in Sodium Chloride 0.9% Inj 100 ML IV.SIG SCH ×2 (05:10→20:47)
[2018-10-08] MEDS: Levothyroxine 50 MCG Tablet PO SCH (05:10)
[2018-10-08] MEDS: Divalproex 500 MG DR Tablet PO SCH ×2 (08:31→20:48)
[2018-10-08] MEDS: QUEtiapine 25 MG Tablet PO SCH ×4 (08:34→20:48)
[2018-10-08 10:32] LABS: Calcium 8.8 mg/dL (8.5-10.1); Carbon Dioxide 22.3 meq/L (21.0-32.0)
[2018-10-08 10:35] LABS: Potassium 5.3 meq/L (3.5-5.1)
--- NOTE | 2018-10-08 14:46 | P.PNIM ---
Subjective Interval history: Patient is seen sitting up in bed. She reports that she is feeling somewhat better. She has been having some wheezing. Tells me at home she uses albuterol for her COPD but she has not had it while she was here. No fever or chills. No nausea vomiting or diarrhea. Physical Exam Vital signs: Vital Signs 10/08/18 05:59 Temperature 98.5 F Pulse Rate 79 Respiratory Rate 17 Blood Pressure 110/70 Pulse Oximetry 97 Intake & Output 10/07/18 10/08/18 10/08/18 18:59 06:59 18:59 Intake Total 4365 / 4365 200 / 200 Balance 4365 / 4365 200 / 200 Intake: IV 1125 / 1125 200 / 200 NS Inj 1,000 ML @ 42 mls/hr IV. 900 / 900 CONT .[id number] [facility] Rx#:[id number] Unasyn Inj 3 GM In NS Inj 100 225 / 225 200 / 200 ML @ 200 mls/hr IV.SIG Q6H [facility] Rx#:[id number] Oral 3240 / 3240 Other: # Voids 3 4 Narrative: GENERAL: Well-nourished, well-developed adult female in mild discomfort. SKIN: Warm and dry. NECK: Trachea midline. No JVD. Left submandibular tenderness. Visible and easily palpated around lump in subglandular space which is exquisitely tender to touch. No surface lesion or erythema. Throat with erythema but no obvious exudates. No obvious dental lesions. CARDIOVASCULAR: Regular rate and rhythm. RESPIRATORY: No accessory muscle use. Clear to auscultation. Breath sounds equal bilaterally. GASTROINTESTINAL: Abdomen soft, non-tender, nondistended. MUSCULOSKELETAL: Extremities without clubbing, cyanosis, or edema. No obvious deformities. Results Labs CBC & Chem 7: 10/05/18 17:21 10/08/18 09:52 Assessment and Plan (1) Adjustment disorder with mixed disturbance of emotions and conduct: Code(s): F43.25 - Adjustment disorder with mixed disturbance of emotions and conduct Status: Acute Plan Patient is a 62-year-old female with a past medical history of hypothyroidism, COPD and bipolar and schizoaffective disorder. Initially presented to the emergency room 10/02/18 severely depressed and with suicidal ideation. She was Briggs acted and placed in the inpatient psychiatric unit. Today the patient developed a low-grade fever of 100.3 and complained of pain and swelling in her neck. Hospitalist service has been consulted for evaluation of the fever and pain. Suicidal ideation, bipolar, schizoaffective -Managed by psychiatry Sialolithiasis/Sialoadenitis Submandibular swelling, fever -CT ordered to evaluate - 6 mm salivary duct stone. -Consult placed to ENT; appreciate assistance -Labs not indicative of sepsis at admit on 10/02/18 however HR 90 with RR 20+ and T-max 100.3; repeat ordered -lactic acid 3.1-->2.7. WBCs remain WNL, Monitor. -Started IV clindamycin; changed 10/06/18 to ampicillin IV followed by PO Augmentin by Dr. Lopez, ENT -Dexamethasone x 3 doses added -Gentle IVF fluid due to swallow pain/difficulty and concern for dehydration; now stopped; getting adequate p.o. intake Acute pain -PRN pain management as indicated. Avoid oversedation. Hypokalemia -Mild. Monitor. Encourage fluids. COPD -Duo nebs ordered DVT prophylaxis: Ambulatory Progress Note: Quality VTE Deep Vein Thrombosis/Pulmonary Embolism Present on Admission: No
--- NOTE | 2018-10-08 16:27 | P.PNPSY ---
Subjective Remarks: Patient seen for follow-up, chart reviewed. Discussion with nursing staff reported that patient depressed, stated he wanted to be with her son, but denies any suicide ideations. Patient was found lying in hospital bed, cooperative. Appearing with continued sad affect and dysphoric. Patient states that she still feels down, referring to her recently son but that this was about the 1 year anniversary. She states that she is also feeling stressed that her daughter is a drug addict and had moved from [place] where her daughter is to be in [facility]. Patient continues to have suicide ideations stating her medications are helping and that she is having less auditory hallucinations but continue to be present. Review of Systems All other systems reviewed negative except as stated in HPI Mental Status Examination Appearance: Appropriate Consciousness: Alert Orientation: x4 Motor Activity: Other Speech: Unremarkable Language: Adequate Fund of Knowledge: Adequate Attention and Concentration: Adequate Memory: Unremarkable Mood: Sad Affect: Sad, Other (dysphoric) Thought Process & Associations: Intact Thought Content: Appropriate Hallucination Type: None Delusion Type: None Suicidal Ideation: Yes Suicidal Plan: No Suicidal Intention: No Homicidal Ideation: No Homicidal Plan: No Homicidal Intention: No Insight: Adequate Judgment: Adequate Assessment and Plan - Assessment (1) Adjustment disorder with mixed disturbance of emotions and conduct Code(s): F43.25 - Adjustment disorder with mixed disturbance of emotions and conduct Status: Acute - Plan Plan: Patient continues with depressed mood along with continued suicidal ideation but stating a decrease in auditory hallucinations. We will continue current treatment. We will continue to monitor mood and behavior. Discharge planning in progress. Justification for Continued Inpatient Stay: At risk of further decompensation at lower level care. Request Healthcare Surrogate/Guardian Advocate?: No
[2018-10-08] MEDS: Mirtazapine 15 MG Tablet PO SCH (20:48)
[2018-10-08] MEDS: traZODone 50 MG Tablet PO PRN (21:08)
[2018-10-09] MEDS: Ampicillin/Sulbactam Inj 3 GM in Sodium Chloride 0.9% Inj 100 ML IV.SIG SCH ×2 (02:36→08:48)
[2018-10-09] MEDS: Levothyroxine 50 MCG Tablet PO SCH (06:16)
[2018-10-09] MEDS: QUEtiapine 25 MG Tablet PO SCH ×2 (08:33→16:53)
[2018-10-09] MEDS: Divalproex 500 MG DR Tablet PO SCH ×2 (08:45→20:14)
[2018-10-09 10:10] LABS: Baso % (Auto) 0.1 % (0.0-2.0); Hemoglobin 10.6 gm/dL (11.6-15.3); Lymph # (Auto) 1.6 th/mm3 (1.0-4.8); Lymph % (Auto) 19.4 % (9.0-44.0); Mean Corpuscular Volume 96.8 fL (80.0-100.0); Mean Platelet Volume 7.5 fL (7.0-11.0); Mono # (Auto) 0.6 th/mm3 (0.0-0.9); Mono % (Auto) 7.2 % (0.0-8.0); Neut # (Auto) 6.1 th/mm3 (1.8-7.7); Neut % (Auto) 73.3 % (16.0-70.0); Platelet Count 190 th/mm3 (150-450); Red Blood Count 3.31 mil/mm3 (4.00-5.30); Red Cell Distribution Width 14.6 % (11.6-17.2); White Blood Count 8.3 th/mm3 (4.0-11.0)
[2018-10-09 10:33] LABS: Calcium 8.4 mg/dL (8.5-10.1); Carbon Dioxide 21.3 meq/L (21.0-32.0); Potassium 5.2 meq/L (3.5-5.1)
--- NOTE | 2018-10-09 13:59 | P.PNPSY ---
Subjective Remarks: Patient is seen today with RN, chart reviewed, patient compliant medications. Patient seen in her room she is alert oriented continues to complain of some pain mainly in the submandibular area. Also complains of some continued anxiety. This shows some mild increased anxiety when discussing past history and trauma with her addicted daughter. And also concerns about her placement and potential living situations. However upon review of the labs I see patient has been taking frequent doses of the 10 mg Nar[place], and he has not used the 5 mg Narco. I will adjust the dosage by decreasing the frequency from every 4 hours to every 6 hours over the weekend and then consider discontinuing the 10 mg dose. I will also order a Depakote blood level for tomorrow morning, we will also increase the frequency of patient's Seroquel to 50 mg in a.m. noon and 4 PM and decrease her at bedtime dose to 100 mg. Hopefully this regimen will calm some of her anxiety. Though I feel she may be a little upset with the adjustment in the dose of her opiates. But I feel that it is quite proper since she has been taking the strong opiate 6 times per day we need to start tapering that Review of Systems All other systems reviewed negative except as stated in HPI Mental Status Examination Appearance: Appropriate Consciousness: Alert Orientation: x4 Motor Activity: Other Speech: Unremarkable Language: Adequate Fund of Knowledge: Adequate Attention and Concentration: Adequate Memory: Unremarkable Mood: Sad, Anxious (Some complaints of increased anxiety) Affect: Other (Slight increased range and intensity) Thought Process & Associations: Intact Thought Content: Appropriate Hallucination Type: None Delusion Type: None Suicidal Ideation: Yes (Denies today) Suicidal Plan: No Suicidal Intention: No Homicidal Ideation: No Homicidal Plan: No Homicidal Intention: No Insight: Adequate Judgment: Adequate Assessment and Plan - Assessment (1) Adjustment disorder with mixed disturbance of emotions and conduct Code(s): F43.25 - Adjustment disorder with mixed disturbance of emotions and conduct Status: Acute - Plan Plan: Patient depression is lifting somewhat her anxiety continues there is anticipatory issues also with placement. She medication adjustments to address anxiety and pain management Justification for Continued Inpatient Stay: At this time patient with decompensated placed on a lower level of care Discharge Planning: To be determined Request Healthcare Surrogate/Guardian Advocate?: No
--- NOTE | 2018-10-09 14:08 | P.PN ---
Subjective Interval history: Follow up for Sialolithiasis/Sialoadenitis, COPD. The patient reports continued pain at the left submandibular area. Denies fevers/chills. Still able to tolerate oral intake. Denies any significant shortness of breath but does report occasional wheezing. Denies any chest pain. Denies any other medical complaints at this time. Physical Exam Vital signs: Vital Signs 10/08/18 18:00 10/08/18 20:00 Temperature 99.1 F 98.7 F Pulse Rate 83 71 Respiratory Rate 16 16 Blood Pressure 131/63 121/60 Pulse Oximetry 94 L 96 Intake & Output 10/08/18 10/09/18 10/09/18 18:59 06:59 18:59 Intake Total 450 / 450 960 / 960 Balance 450 / 450 960 / 960 Intake: IV 450 / 450 NS Inj 1,000 ML @ 42 mls/hr IV. 250 / 250 CONT .[id number] [facility] Rx#:[id number] Unasyn Inj 3 GM In NS Inj 100 200 / 200 ML @ 200 mls/hr IV.SIG Q6H [facility] Rx#:[id number] Oral 960 / 960 Narrative: GENERAL: Well-nourished, well-developed pleasant middle aged female patient in [facility]. SKIN: Warm and dry. No rash. HEENT: Normocephalic. Atraumatic. Pupils equal and round. Mucous membranes pink and moist. Oropharynx clear, no obvious stone at floor of mouth at salivary gland. NECK: Supple. Trachea midline. Left submandibular lymphadenopathy with palpable nodule, TTP. CARDIOVASCULAR: Regular rate and rhythm. No murmur appreciated. RESPIRATORY: No accessory muscle use. Clear to auscultation. Breath sounds equal bilaterally. GASTROINTESTINAL: Abdomen soft, non-tender, nondistended. Normoactive bowel sounds x4. MUSCULOSKELETAL: No obvious deformities. Extremities without clubbing, cyanosis , or edema. NEUROLOGICAL: Awake and alert. No obvious cranial nerve deficits. Motor grossly within normal limits. Moving all extremities spontaneously. Normal speech. Results - Labs CBC & Chem 7: 10/09/18 09:53 10/09/18 09:53 Laboratory Results - last 24 hr 10/09/18 10/09/18 09:53 09:53 WBC 8.3 RBC 3.31 L Hgb 10.6 L Hct 32.0 L MCV 96.8 MCH 32.0 MCHC 33.0 RDW 14.6 Plt Count 190 MPV 7.5 Neut % (Auto) 73.3 H Lymph % (Auto) 19.4 [place] % (Auto) 7.2 Eos % (Auto) 0.0 Baso % (Auto) 0.1 Neut # (Auto) 6.1 Lymph # (Auto) 1.6 [place] # (Auto) 0.6 Eos # (Auto) 0.0 Baso # (Auto) 0.0 WBC Differential . Differential Comment Auto diff final Sodium 139 Potassium 5.2 H Chloride 105 Carbon Dioxide 21.3 Anion Gap 13 BUN 35 H Creatinine 1.16 H Estimated GFR 48 L Random Glucose 83 Calcium 8.4 L - Imaging Soft Tissue Neck CT 10/05/18 00:00 CONCLUSION: Left floor of mouth sialolithiasis. Assessment and Plan - Assessment (1) Adjustment disorder with mixed disturbance of emotions and conduct Code(s): F43.25 - Adjustment disorder with mixed disturbance of emotions and conduct Status: Acute - Plan 62-year-old female with a past medical history of hypothyroidism, COPD and bipolar and schizoaffective disorder. Initially presented to the emergency room 10/02/18 severely depressed and with suicidal ideation. She was Briggs acted and placed in the inpatient psychiatric unit. Today the patient developed a low-grade fever of 100.3 and complained of pain and swelling in her neck. Hospitalist service has been consulted for evaluation of the fever and pain. Suicidal ideation, bipolar, schizoaffective -Continue management per psychiatry Sialolithiasis/Sialoadenitis: patient with +Submandibular swelling, fever 100.3 -CT neck showed 6 mm salivary duct stone. -Consult placed to ENT; appreciate assistance -Labs not indicative of sepsis at admit on 10/02/18 however HR 90 with RR 20+ and T-max 100.3; repeat ordered -lactic acid 3.1--> 2.7. -WBCs remain WNL, Monitor. -Started on IV clindamycin; changed 10/06/18 to ampicillin IV, now on PO Augmentin x7days per Dr. Lopez, ENT -S/p IV Dexamethasone 8mg qd x 3 doses -Given gentle IVF fluid due to swallow pain/difficulty and concern for dehydration; now stopped; getting adequate p.o. intake -improving Acute pain -PRN pain management as indicated. -Avoid oversedation. Hypokalemia -Mild. Monitor. Encourage fluids. COPD -Continue albuterol inhaler prn and duonebs prn DVT prophylaxis: Ambulatory Discharge Planning: The patient is medically stable and can be transferred to regular psychiatry floor if needed. Continue po antibiotics. Will continue to follow while on med/ psych floor.
[2018-10-09] MEDS: Mirtazapine 15 MG Tablet PO SCH (20:14)
[2018-10-09] MEDS: QUEtiapine 100 MG Tablet PO SCH (20:14)
[2018-10-09] MEDS: Amoxicillin/Clavulanate 875/125 MG Tablet PO SCH (20:15)
[2018-10-09] MEDS: traZODone 50 MG Tablet PO PRN (20:28)
[2018-10-10] MEDS: Levothyroxine 50 MCG Tablet PO SCH (05:45)
[2018-10-10] MEDS: Divalproex 500 MG DR Tablet PO SCH ×2 (09:48→21:14)
[2018-10-10] MEDS: QUEtiapine 25 MG Tablet PO SCH ×3 (09:48→15:28)
[2018-10-10] MEDS: Amoxicillin/Clavulanate 875/125 MG Tablet PO SCH ×2 (09:49→21:14)
--- NOTE | 2018-10-10 11:09 | P.PN ---
Subjective Interval history: Follow up for Sialolithiasis/Sialoadenitis, COPD. The patient reports continue pain and swelling at the left submandibular area, with associated odynophagia. She is still tolerating oral intake. Denies fevers/chills. Denies chest pain or shortness of breath but does report occasional wheezing which is relieved by her albuterol inhaler. Denies any other medical complaints. Physical Exam Vital signs: Vital Signs 10/09/18 17:40 10/10/18 06:00 Temperature 98.9 F 98.0 F Pulse Rate 85 76 Respiratory Rate 16 17 Blood Pressure 120/58 L 107/59 L Pulse Oximetry 96 95 Intake & Output 10/09/18 10/10/18 10/10/18 18:59 06:59 18:59 Intake Total 1440 / 1440 720 / 720 Balance 1440 / 1440 720 / 720 Intake: Oral 1440 / 1440 720 / 720 Narrative: GENERAL: Well-nourished, well-developed pleasant middle aged female patient in [facility]. SKIN: Warm and dry. No rash. HEENT: Normocephalic. Atraumatic. Pupils equal and round. Mucous membranes pink and moist. Oropharynx clear, no obvious stone at floor of mouth at salivary gland. NECK: Supple. Trachea midline. Left submandibular lymphadenopathy with palpable nodule, TTP, mild right submandibular lymphadenopathy. CARDIOVASCULAR: Regular rate and rhythm. No murmur appreciated. RESPIRATORY: No accessory muscle use. Clear to auscultation. Breath sounds equal bilaterally. GASTROINTESTINAL: Abdomen soft, non-tender, nondistended. Normoactive bowel sounds x4. MUSCULOSKELETAL: No obvious deformities. Extremities without clubbing, cyanosis , or edema. NEUROLOGICAL: Awake and alert. No obvious cranial nerve deficits. Moving all extremities spontaneously. Normal speech. Results - Labs CBC & Chem 7: 10/09/18 09:53 10/09/18 09:53 Laboratory Results - last 24 hr 10/09/18 10/10/18 20:37 06:49 POC Glucose 103 Valproic Acid 75 Assessment and Plan - Assessment (1) Adjustment disorder with mixed disturbance of emotions and conduct Code(s): F43.25 - Adjustment disorder with mixed disturbance of emotions and conduct Status: Acute - Plan 62-year-old female with a past medical history of hypothyroidism, COPD and bipolar and schizoaffective disorder. Initially presented to the emergency room 10/02/18 severely depressed and with suicidal ideation. She was Briggs acted and placed in the inpatient psychiatric unit. Today the patient developed a low-grade fever of 100.3 and complained of pain and swelling in her neck. Hospitalist service has been consulted for evaluation of the fever and pain. Suicidal ideation, bipolar, schizoaffective -Continue management per psychiatry Sialolithiasis/Sialoadenitis: patient with +Submandibular swelling, fever 100.3 -CT neck showed 6 mm salivary duct stone. -Consult placed to ENT; appreciate assistance -Labs not indicative of sepsis at admit on 10/02/18 however HR 90 with RR 20+ and T-max 100.3; repeat ordered -lactic acid 3.1--> 2.7. -WBCs remain WNL, Monitor. -Started on IV clindamycin; changed 10/06/18 to ampicillin IV, now on PO Augmentin x7days per Dr. Lopez, ENT -S/p IV Dexamethasone 8mg qd x 3 doses -Given gentle IVF fluid due to swallow pain/difficulty and concern for dehydration; now stopped; getting adequate p.o. intake -overall improving -ordered [place] lozenges prn Acute pain -PRN pain management as indicated. -Avoid oversedation. Hypokalemia -Mild. Monitor. Encourage fluids. COPD -Continue albuterol inhaler prn and duonebs prn DVT prophylaxis: Ambulatory Discharge Planning: The patient is medically stable and can be transferred to regular psychiatry floor if needed. Continue po antibiotics. Will continue to follow while on med/ psych floor.
--- NOTE | 2018-10-10 12:55 | P.PNPSY ---
Subjective Remarks: Patient was seen and case discussed with nursing. Patient says she is feeling "a little bit better." sHe feels that her hallucinations are going away. sHe is tolerating her medications well patient is complaining of insomnia. Behaving well on the unit. At this time she denies suicidal or homicidal ideation intent or plan Review of Systems All other systems reviewed negative except as stated in HPI Mental Status Examination Appearance: Appropriate Consciousness: Alert Orientation: x4 Motor Activity: Other Speech: Unremarkable Language: Adequate Fund of Knowledge: Adequate Attention and Concentration: Adequate Memory: Unremarkable Mood: Sad, Anxious (Some complaints of increased anxiety) Affect: Other (Slight increased range and intensity) Thought Process & Associations: Intact Thought Content: Appropriate Hallucination Type: None Delusion Type: None Suicidal Ideation: Yes (Denies today) Suicidal Plan: No Suicidal Intention: No Homicidal Ideation: No Homicidal Plan: No Homicidal Intention: No Insight: Adequate Judgment: Adequate Assessment and Plan - Assessment (1) Adjustment disorder with mixed disturbance of emotions and conduct Code(s): F43.25 - Adjustment disorder with mixed disturbance of emotions and conduct Status: Acute - Plan Plan: Increase trazodone to 100 mg nightly Justification for Continued Inpatient Stay: Patient would decompensate in a less restrictive setting Request Healthcare Surrogate/Guardian Advocate?: No
[2018-10-10] MEDS: Menthol 5.8 MG Lozenge BUCCAL PRN ×2 (13:04→22:21)
[2018-10-10] MEDS: traZODone 100 MG Tablet PO SCH (21:14)
[2018-10-10] MEDS: QUEtiapine 100 MG Tablet PO SCH (21:14)
[2018-10-10] MEDS: Mirtazapine 15 MG Tablet PO SCH (21:14)
[2018-10-11] MEDS: Amoxicillin/Clavulanate 875/125 MG Tablet PO SCH ×2 (09:32→20:08)
[2018-10-11] MEDS: QUEtiapine 25 MG Tablet PO SCH ×3 (09:32→16:08)
[2018-10-11] MEDS: Divalproex 500 MG DR Tablet PO SCH ×2 (09:32→20:08)
[2018-10-11] MEDS: Levothyroxine 50 MCG Tablet PO SCH (09:37)
--- NOTE | 2018-10-11 10:18 | P.PNPSY ---
Subjective Remarks: Reviewed electronic record and discussed with nursing staff. Rounded with EMI [place]. Patient is in her room coloring. She states that she is no longer suicidal but still is grieving the loss of her son. She has been working with Case Management and they are helping her with housing. She will not be returning to the place where she was staying renting a room. She endorses that she has been sleeping and eating well. She is encouraged by the plan to help her transition back into housing and the community. Review of Systems All other systems reviewed negative except as stated in HPI Mental Status Examination Appearance: Appropriate Consciousness: Alert Orientation: x4 Motor Activity: Normal gait Speech: Unremarkable Language: Adequate Fund of Knowledge: Adequate Attention and Concentration: Adequate Memory: Unremarkable Mood: Sad Affect: Other (Slight increased range and intensity) Thought Process & Associations: Intact Thought Content: Appropriate Hallucination Type: None Delusion Type: None Suicidal Ideation: No Suicidal Plan: No Suicidal Intention: No Homicidal Ideation: No Homicidal Plan: No Homicidal Intention: No Insight: Adequate Judgment: Adequate Assessment and Plan - Assessment (1) Adjustment disorder with mixed disturbance of emotions and conduct Code(s): F43.25 - Adjustment disorder with mixed disturbance of emotions and conduct Status: Acute - Plan Plan: Continue current treatment plan. Justification for Continued Inpatient Stay: Moving patient to a less restrictive environment may result in her decompensation. Request Healthcare Surrogate/Guardian Advocate?: No
[2018-10-11] MEDS ORDERED: Bisacodyl 10 MG Supp RECTAL PRN (10:51)
--- NOTE | 2018-10-11 10:51 | P.PN ---
Subjective Interval history: Follow up for Sialolithiasis/Sialoadenitis, COPD. Patient reports continued left submandibular swelling and pain, with some extension into the right submandibular area. Denies fevers or chills. She states the cough drops are helping. Requesting stool softeners as she has not had a bowel movement in a couple days. States her abdomen feels more firm, however denies any pain. Denies any nausea or vomiting. Tolerating oral intake. Denies any other medical complaints at this time. Physical Exam Vital signs: Vital Signs 10/10/18 17:36 10/11/18 06:51 Temperature 98.2 F 98.6 F Pulse Rate 78 79 Respiratory Rate 16 18 Blood Pressure 106/59 L 112/56 L Pulse Oximetry 97 Intake & Output 10/10/18 10/11/18 10/11/18 18:59 06:59 18:59 Intake Total 480 / 480 Balance 480 / 480 Intake: Oral 480 / 480 Narrative: GENERAL: Well-nourished, well-developed pleasant middle aged female patient in [facility]. SKIN: Warm and dry. No rash. HEENT: Normocephalic. Atraumatic. Pupils equal and round. Mucous membranes pink and moist. Oropharynx clear, no obvious stone at floor of mouth at salivary gland. NECK: Supple. Trachea midline. Left submandibular lymphadenopathy with palpable nodule, TTP, mild right submandibular lymphadenopathy. CARDIOVASCULAR: Regular rate and rhythm. No murmur appreciated. RESPIRATORY: No accessory muscle use. Clear to auscultation. Breath sounds equal bilaterally. GASTROINTESTINAL: Abdomen soft, non-tender, nondistended. Normoactive bowel sounds x4. MUSCULOSKELETAL: No obvious deformities. Extremities without clubbing, cyanosis , or edema. NEUROLOGICAL: Awake and alert. No obvious cranial nerve deficits. Moving all extremities spontaneously. Normal speech. Results - Labs CBC & Chem 7: 10/09/18 09:53 10/09/18 09:53 Assessment and Plan - Assessment (1) Adjustment disorder with mixed disturbance of emotions and conduct Code(s): F43.25 - Adjustment disorder with mixed disturbance of emotions and conduct Status: Acute - Plan 62-year-old female with a past medical history of hypothyroidism, COPD and bipolar and schizoaffective disorder. Initially presented to the emergency room 10/02/18 severely depressed and with suicidal ideation. She was Briggs acted and placed in the inpatient psychiatric unit. Today the patient developed a low-grade fever of 100.3 and complained of pain and swelling in her neck. Hospitalist service has been consulted for evaluation of the fever and pain. Suicidal ideation, bipolar, schizoaffective -Continue management per psychiatry Sialolithiasis/Sialoadenitis: patient with +Submandibular swelling, fever 100.3 -CT neck showed 6 mm salivary duct stone. -Consult placed to ENT; appreciate assistance -Labs not indicative of sepsis at admit on 10/02/18 however HR 90 with RR 20+ and T-max 100.3; repeat ordered -lactic acid 3.1--> 2.7. -WBCs remain WNL, Monitor. -Started on IV clindamycin; changed 10/06/18 to ampicillin IV, now on PO Augmentin x7days per Dr. Lopez, ENT -S/p IV Dexamethasone 8mg qd x 3 doses -Given gentle IVF fluid due to swallow pain/difficulty and concern for dehydration; now stopped; getting adequate p.o. intake -overall improving -[place] lozenges prn Acute pain -PRN pain management as indicated. -Avoid oversedation. Hypokalemia -Mild. Monitor. Encourage fluids. COPD -Continue albuterol inhaler prn and duonebs prn Constipation -Patient reports no BM x2 days -Started on Sruthi-Colace 2 tabs p.o. twice daily -Constipation medication protocol ordered -Monitor for BM DVT prophylaxis: Ambulatory
[2018-10-11] MEDS: Senna/Docusate Sodium 8.6/50 MG Tablet PO SCH ×2 (12:44→20:08)
[2018-10-11] MEDS: traZODone 100 MG Tablet PO SCH (20:08)
[2018-10-11] MEDS: QUEtiapine 100 MG Tablet PO SCH (20:09)
[2018-10-11] MEDS: Mirtazapine 15 MG Tablet PO SCH (20:09)
[2018-10-12] MEDS: Levothyroxine 50 MCG Tablet PO SCH (06:01)
[2018-10-12] MEDS: Divalproex 500 MG DR Tablet PO SCH ×2 (08:20→22:53)
[2018-10-12] MEDS: Amoxicillin/Clavulanate 875/125 MG Tablet PO SCH ×2 (08:20→22:53)
[2018-10-12] MEDS: QUEtiapine 25 MG Tablet PO SCH ×3 (08:20→17:25)
[2018-10-12] MEDS: Senna/Docusate Sodium 8.6/50 MG Tablet PO SCH ×2 (08:20→22:53)
--- NOTE | 2018-10-12 14:56 | P.PNPSY ---
Subjective Remarks: Patient seen and examined room with nurse Kassi, patient alert oriented calm cooperative, chart reviewed, patient compliant medication. She continues to complain of pain submandibular the area of her salivary stone. Though she is coping well with this. She is also quite excited about her upcoming anticipated discharge to [facility] [place]. I have requested a hospitalist to medically clear this patient tomorrow and make recommendations for further treatment of the salivary gland stone. Patient does denies suicidality voices or visions at the present time Review of Systems All other systems reviewed negative except as stated in HPI Mental Status Examination Appearance: Appropriate Consciousness: Alert Orientation: x4 Motor Activity: Normal gait Speech: Unremarkable Language: Adequate Fund of Knowledge: Adequate Attention and Concentration: Adequate Memory: Unremarkable Mood: Sad Affect: Other (Good range and intensity) Thought Process & Associations: Intact Thought Content: Appropriate Hallucination Type: None Delusion Type: None Suicidal Ideation: No Suicidal Plan: No Suicidal Intention: No Homicidal Ideation: No Homicidal Plan: No Homicidal Intention: No Insight: Adequate Judgment: Adequate Assessment and Plan - Assessment (1) Adjustment disorder with mixed disturbance of emotions and conduct Code(s): F43.25 - Adjustment disorder with mixed disturbance of emotions and conduct Status: Acute - Plan Plan: Patient continues to improve we will complaining of some continued insomnia will increase trazodone to 150 mg at bedtime. Will ask the hospitalist to medically clear patient for anticipated discharge on 10/14 the [facility]. And also of them to make recommendations for further treatment of the salivary Justification for Continued Inpatient Stay: Bed placement at [facility] noted for 10/14 also needing medical clearance Discharge Planning: Patient to go to [facility] on Saturday 10/14 Request Healthcare Surrogate/Guardian Advocate?: No
--- NOTE | 2018-10-12 17:10 | P.PN ---
Subjective Interval history: Follow up for Sialolithiasis/Sialoadenitis, COPD, left wrist laceration. The patient is seen in the day room eating dinner. She reports continued pain throughout the submandibular areas. She is still tolerating oral intake. Denies any changes in speech. Again discussed recommendations to complete entire course of antibiotics and follow up as outpatient with ENT Dr. Lopez, patient verbalized understanding. Denies fevers/chills. Left wrist laceration healing well, discussed removing sutures tomorrow. Physical Exam Vital signs: Vital Signs 10/11/18 17:49 10/12/18 05:43 Temperature 99.3 F 98.3 F Pulse Rate 97 H 82 Respiratory Rate 18 16 Blood Pressure 111/53 L 117/55 L Pulse Oximetry 97 96 Intake & Output 10/11/18 10/12/18 10/12/18 18:59 06:59 18:59 Intake Total 720 / 720 Balance 720 / 720 Weight 73.7 kg Intake: Oral 720 / 720 Other: Date of Last Bowel Movement 10/10/18 Narrative: GENERAL: Well-nourished, well-developed pleasant middle aged female patient in [facility]. SKIN: Warm and dry. No rash. Left wrist with laceration and sutures in place, healing well, no surrounding erythema, no drainage. HEENT: Normocephalic. Atraumatic. Pupils equal and round. Mucous membranes pink and moist. Oropharynx clear, no obvious stone at floor of mouth at salivary gland. NECK: Supple. Trachea midline. Left submandibular lymphadenopathy with palpable nodule, TTP, mild right submandibular lymphadenopathy. CARDIOVASCULAR: Regular rate and rhythm. No murmur appreciated. RESPIRATORY: No accessory muscle use. Clear to auscultation. Breath sounds equal bilaterally. GASTROINTESTINAL: Abdomen soft, non-tender, nondistended. Normoactive bowel sounds x4. MUSCULOSKELETAL: No obvious deformities. Extremities without clubbing, cyanosis , or edema. NEUROLOGICAL: Awake and alert. No obvious cranial nerve deficits. Moving all extremities spontaneously. Normal speech. Results - Labs CBC & Chem 7: 10/09/18 09:53 10/09/18 09:53 Assessment and Plan - Assessment (1) Adjustment disorder with mixed disturbance of emotions and conduct Code(s): F43.25 - Adjustment disorder with mixed disturbance of emotions and conduct Status: Acute - Plan 62-year-old female with a past medical history of hypothyroidism, COPD and bipolar and schizoaffective disorder. Initially presented to the emergency room 10/02/18 severely depressed and with suicidal ideation. She was Briggs acted and placed in the inpatient psychiatric unit. Today the patient developed a low-grade fever of 100.3 and complained of pain and swelling in her neck. Hospitalist service has been consulted for evaluation of the fever and pain. Suicidal ideation, bipolar, schizoaffective -Continue management per psychiatry Sialolithiasis/Sialoadenitis: patient with +Submandibular swelling, fever 100.3 -CT neck showed 6 mm salivary duct stone. -Consult placed to ENT; appreciate assistance -Labs not indicative of sepsis at admit on 10/02/18 however HR 90 with RR 20+ and T-max 100.3; repeat ordered -lactic acid 3.1--> 2.7. -WBCs remain WNL, Monitor. -Started on IV clindamycin; changed 10/06/18 to ampicillin IV, now on PO Augmentin x7days per Dr. Lopez, ENT -S/p IV Dexamethasone 8mg qd x 3 doses -Given gentle IVF fluid due to swallow pain/difficulty and concern for dehydration; now stopped; getting adequate p.o. intake -overall improving -[place] lozenges prn -Continue augmentin 875/125mg bid x7days (to be completed on 10/16) -outpatient f/up with ENT Dr. Lopez Acute pain -PRN pain management as indicated. -Avoid oversedation. Hypokalemia -Mild. Monitor. Encourage fluids. COPD -Continue albuterol inhaler prn and duonebs prn Constipation -Patient reports no BM x2 days -Started on Sruthi-Colace 2 tabs p.o. twice daily -Constipation medication protocol ordered -BM on 10/10 Left Wrist Laceration -s/p 5 sutures placed on 10/02/18 -healing well, plan for suture removal prior to discharge, will likely perform suture removal on 10/13 DVT prophylaxis: Ambulatory Discharge Planning: The patient is medically stable for discharge planned for 10/14. Medical team will remove sutures on 10/13. Will give prescription to complete Augmentin 875/125mg po bid x7days on 10/16. Outpatient f/up with ENT Dr. Lopez.
[2018-10-12] MEDS: traZODone 50 MG Tablet PO SCH (22:53)
[2018-10-12] MEDS: Mirtazapine 15 MG Tablet PO SCH (22:53)
[2018-10-12] MEDS: QUEtiapine 100 MG Tablet PO SCH (22:54)
[2018-10-13] MEDS: Levothyroxine 50 MCG Tablet PO SCH (06:32)
[2018-10-13] MEDS: QUEtiapine 25 MG Tablet PO SCH ×3 (09:30→17:49)
[2018-10-13] MEDS: Amoxicillin/Clavulanate 875/125 MG Tablet PO SCH ×2 (09:30→21:49)
[2018-10-13] MEDS: Divalproex 500 MG DR Tablet PO SCH ×2 (09:30→20:45)
[2018-10-13] MEDS: Senna/Docusate Sodium 8.6/50 MG Tablet PO SCH ×2 (09:30→20:45)
--- NOTE | 2018-10-13 10:31 | P.PNPSY ---
Subjective Remarks: Patient seen in her room with nurse and, chart reviewed, patient compliant medication. Patient continues to take the [place] 10 mg. Q. 6 age. We will decrease that to the 5 mg dose and make it every 8 hours. It appears there is a bed available at [facility] tomorrow and we need to discontinue the opiates by that. Patient was is doing well still complains of some pain in the maxillary gland areas, though she denies suicidality or homicidality voices or visions. She is excited though somewhat anxious about this transition. However she is able contract to do no harm. For now we will otherwise continue treatment with probable discharge tomorrow Review of Systems All other systems reviewed negative except as stated in HPI Mental Status Examination Appearance: Appropriate Consciousness: Alert Orientation: x4 Motor Activity: Normal gait Speech: Unremarkable Language: Adequate Fund of Knowledge: Adequate Attention and Concentration: Adequate Memory: Unremarkable Mood: Sad (Improving) Affect: Other (Good range and intensity) Thought Process & Associations: Intact Thought Content: Appropriate Hallucination Type: None Delusion Type: None Suicidal Ideation: No Suicidal Plan: No Suicidal Intention: No Homicidal Ideation: No Homicidal Plan: No Homicidal Intention: No Insight: Adequate Judgment: Adequate Assessment and Plan - Assessment (1) Adjustment disorder with mixed disturbance of emotions and conduct Code(s): F43.25 - Adjustment disorder with mixed disturbance of emotions and conduct Status: Acute - Plan Plan: Patient's mood is improving she is denying suicidality voices or visions. He is excited about though somewhat anxious also about discharge tomorrow to [facility] we are continuing to titrate her opiate anticipation of discontinuing that on discharge tomorrow Justification for Continued Inpatient Stay: There is a bed available tomorrow in an appropriate placement Discharge Planning: To be discharged tomorrow to [facility] Request Healthcare Surrogate/Guardian Advocate?: No
--- NOTE | 2018-10-13 13:32 | P.PN ---
Subjective Interval history: Follow up for Sialolithiasis/Sialoadenitis, COPD, left wrist laceration. The patient is seen in the day room, coloring. She reports continued pain throughout the submandibular areas. Again discussed recommendations to complete entire course of antibiotics and follow up as outpatient with ENT Dr. Lopez in one week if not getting better, patient verbalized understanding. She is still tolerating oral intake. Denies fevers/chills. The patient denies any new medical complaints. Reviewed vital signs and stable. Discussed with RN, no new concerns. Physical Exam Vital signs: Vital Signs 10/12/18 18:09 10/12/18 20:00 10/13/18 03:48 Temperature 98.5 F Pulse Rate 80 Respiratory Rate 16 18 18 Blood Pressure 106/52 L Pulse Oximetry 96 10/13/18 05:01 10/13/18 06:20 10/13/18 09:33 Temperature 98.9 F Pulse Rate 82 Respiratory Rate 18 16 20 Blood Pressure 108/57 L Pulse Oximetry Intake & Output 10/12/18 10/13/18 10/13/18 18:59 06:59 18:59 Intake Total 1080 / 1080 360 / 360 Balance 1080 / 1080 360 / 360 Intake: Oral 1080 / 1080 360 / 360 Other: Date of Last Bowel Movement 10/10/18 10/10/18 Narrative: GENERAL: Well-nourished, well-developed pleasant middle aged female patient in [facility]. SKIN: Warm and dry. No rash. Left wrist with laceration and sutures in place, healing well, no surrounding erythema, no drainage. HEENT: Normocephalic. Atraumatic. Pupils equal and round. Mucous membranes pink and moist. Oropharynx clear, no obvious stone at floor of mouth at salivary gland. NECK: Supple. Trachea midline. Left submandibular lymphadenopathy with palpable nodule, TTP, mild right submandibular lymphadenopathy. CARDIOVASCULAR: Regular rate and rhythm. No murmur appreciated. RESPIRATORY: No accessory muscle use. Clear to auscultation. Breath sounds equal bilaterally. GASTROINTESTINAL: Abdomen soft, non-tender, nondistended. Normoactive bowel sounds x4. MUSCULOSKELETAL: No obvious deformities. Extremities without clubbing, cyanosis , or edema. NEUROLOGICAL: Awake and alert. No obvious cranial nerve deficits. Moving all extremities spontaneously. Normal speech. Results - Labs CBC & Chem 7: 10/09/18 09:53 10/09/18 09:53 - Procedures 10/02/18 - 5 sutures placed at left wrist laceration in ER 10/13/18 - sutures removed from left wrist Assessment and Plan - Assessment (1) Adjustment disorder with mixed disturbance of emotions and conduct Code(s): F43.25 - Adjustment disorder with mixed disturbance of emotions and conduct Status: Acute - Plan 62-year-old female with a past medical history of hypothyroidism, COPD and bipolar and schizoaffective disorder. Initially presented to the emergency room 10/02/18 severely depressed and with suicidal ideation. She was Briggs acted and placed in the inpatient psychiatric unit. Today the patient developed a low-grade fever of 100.3 and complained of pain and swelling in her neck. Hospitalist service has been consulted for evaluation of the fever and pain. Suicidal ideation, bipolar, schizoaffective -Continue management per psychiatry Sialolithiasis/Sialoadenitis: patient with +Submandibular swelling, fever 100.3 -CT neck showed 6 mm salivary duct stone. -Consult placed to ENT; appreciate assistance -Labs not indicative of sepsis at admit on 10/02/18 however HR 90 with RR 20+ and T-max 100.3; repeat ordered -lactic acid 3.1--> 2.7. -WBCs remain WNL, Monitor. -Started on IV clindamycin; changed 10/06/18 to ampicillin IV, now on PO Augmentin x 7days per Dr. Lopez, ENT -S/p IV Dexamethasone 8mg qd x 3 doses -Given gentle IVF fluid due to swallow pain/difficulty and concern for dehydration; now stopped; getting adequate p.o. intake -Overall improving -[place] lozenges prn -Continue augmentin 875/125mg bid x 7days (to be completed on 10/16) -Outpatient f/up with ENT Dr. Lopez Acute pain -PRN pain management as indicated. -Avoid oversedation. Hypokalemia -Mild. Monitor. Encourage fluids. COPD -Continue albuterol inhaler prn and duonebs prn Constipation -Patient reports no BM x2 days -Started on Sruthi-Colace 2 tabs p.o. twice daily -Constipation medication protocol ordered -BM on 10/10 Left Wrist Laceration -s/p 5 sutures placed on 10/02/18 -Healing well, 5 sutures were removed without any complications today 10/13. Covered with Bandaid. DVT prophylaxis: Ambulatory Discharge Planning: The patient is medically stable for discharge planned for 10/14. Medical team removed sutures on 10/13. Will give prescription to complete Augmentin 875/125mg po bid x7days on 10/16. Outpatient f/up with ENT Dr. Lopez.
--- NOTE | 2018-10-13 15:05 | P.TTN ---
- Patient Problems Problems: 1. Discharge planning 2. Medication compliance 3. Knowledge deficit 4. Lack of coping skills - Progress Toward Goals Provider Present: Dr. Luis Carson (Patient is being treated for depression with unresolved grief, patient remains for further stabilization.) Provider Input: 10/12/2018; per doctor patient is responding to treatment/ medicaton, has been transferred to a higher functioning unit. 10/07/2018; per doctor patient is being treated for her mood/depression medication is being titrated/adjustments bimadhu babin Nurse(s) Present: RN Nurse Input: 10/12/2018; per RN patient is taking medication, has no behavior. 10/07/2018; per RN patient is on oral medication, no behavior and med/meal compliance. Psychiatric Counselors Present: Augustus Almazan Jr., [facility] (Counselor will meet with the patient to discuss a safe discharge plan.), Noemi Lynne, [facility] Psychiatric Therapist Input: 10/12/2018; patient has been accepted at [facility] and will have an available room 10/14/2018. 10/07/2018; counselor will discuss appropriate dc planning with patient obtain income information. Group Spec/RT/OT/GAO Present: Margret Christianson, [employer] (Patient attends select groups.), Lucien Pepe, OT Group Spec/RT/OT/GAO Input: 10/12/2018; patient participates with groups and activities. 10/07/2018; patient participates with groups and activities with a positive actitude - Documentation Teaching Recipient: Patient
[2018-10-13 17:01] VITALS: BP 112/59; PULSE 84; RESP 16; TEMP 98.7; O2SAT 100
[2018-10-13] MEDS: traZODone 50 MG Tablet PO SCH (20:45)
[2018-10-13] MEDS: QUEtiapine 100 MG Tablet PO SCH (20:45)
[2018-10-13] MEDS: Mirtazapine 15 MG Tablet PO SCH (20:45)
[2018-10-13] MEDS: Acetaminophen 325 MG Tablet PO PRN (22:08)
[2018-10-14] MEDS: Levothyroxine 50 MCG Tablet PO SCH (05:38)
--- NOTE | 2018-10-14 08:50 | P.PNADD ---
Addendum to Inpatient Note Reason for Addendum: Additional Documentation Additional information: Chart reviewed, the patient is medically stable for discharge. Recommend to complete course of antibiotics, will need Augmentin until 10/16, prescription provided. Outpatient f/up with ENT Dr. Lopez if symptoms persist.
[2018-10-14] MEDS: Amoxicillin/Clavulanate 875/125 MG Tablet PO SCH (09:01)
[2018-10-14] MEDS: QUEtiapine 25 MG Tablet PO SCH (09:01)
[2018-10-14] MEDS: Divalproex 500 MG DR Tablet PO SCH (09:01)
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
[2018-10-14] MEDS: Senna/Docusate Sodium 8.6/50 MG Tablet PO SCH (10:53)
== END 2018-10-14 11:04 | DRG 882 ==
LOC: NEPD 13:21 → H270 21:30 → NEDA 21:33 → H270 21:58 → H4EA 10-05 17:41 → H260 10-10 13:45
PROVIDERS: ADMIT Psychiatry & Neurology Psychiatry; ATTEND Psychiatry & Neurology Psychiatry
CPT/HCPCS: 12001; 70491; 76937; 80048; 80053; 80061; 80164; 80307; 82948; 82962; 83036; 83605; 83735; 84443; 85025; 90792; 93005; 99285; J0295; J1100; J7030; Q0163; Q9967